=== PATIENT | male | born 1985 | race Caucasian/White ===

== ENCOUNTER 2018-02-19 11:54 | Emergency (ER) | payer SELFPAY ==
[2018-02-19] MEDS ORDERED: NS(*) 0.9% 1000 ML BAG 1,000 ML IV ONE (12:01)
[2018-02-19] MEDS ORDERED: NALOXONE HCL 0.4 MG/ML VIAL IVP ONE (12:05)
--- NOTE | 2018-02-19 12:21 | ER Report ---
History and Physical Time Seen By MD: 11:58 Hx. of Stated Complaint: pt nonresponsive. possible od HPI/ROS CHIEF COMPLAINT: Altered mental status HISTORY OF PRESENT ILLNESS: 32-year-old male patient presents to the emergency room with complaint of altered mental status. Due to his mental status he is not able to give a history. The person who dropped him off states that he had been called by an acquaintance concerned about possible drug overdose. States that he picked friend up and brought him to the emergency room. He was told that fentanyl may have been involved. REVIEW OF SYSTEMS: Unable to do review of systems as patient is unresponsive. Allergies: Coded Allergies: No Known Drug Allergies (Unverified , 02/19/18) Home Meds No Active Prescriptions or Reported Meds Past Medical/Surgical History Unable to obtain past medical history as patient is unresponsive Reviewed Nurses Notes: Yes Constitutional Vital Sign - Last 24 Hours 02/19/18 02/19/18 02/19/18 02/19/18 11:54 11:59 12:06 12:08 Pulse ??? 84 Resp 12 B/P (MAP) 138/94 (109) 128/92 (104) 128/92 Pulse Ox 96 O2 Delivery Room Air 02/19/18 02/19/18 02/19/18 02/19/18 12:09 12:15 12:24 12:30 Pulse 86 ??? Resp 21 13 B/P (MAP) 129/89 (102) 124/81 (95) Pulse Ox 96 95 02/19/18 02/19/18 02/19/18 02/19/18 12:39 12:45 12:54 13:06 Pulse 72 75 Resp 10 12 B/P (MAP) 118/85 (96) Pulse Ox 96 94 O2 Flow Rate 1.0 02/19/18 02/19/18 02/19/18 02/19/18 13:09 13:21 13:24 13:39 Pulse ??? 72 86 Resp 12 14 B/P (MAP) 118/79 (92) Pulse Ox 100 02/19/18 02/19/18 02/19/18 02/19/18 13:40 13:45 14:00 14:15 Pulse 70 103 86 Resp 10 15 9 B/P (MAP) 121/83 (96) 118/78 (91) 02/19/18 02/19/18 02/19/18 11/3/18 14:20 14:30 14:40 14:45 Pulse 86 79 Resp 14 12 B/P (MAP) 115/77 (90) 122/83 (96) Pulse Ox 99 94 02/19/18 02/19/18 02/19/18 02/19/18 15:00 15:15 15:20 15:30 Pulse 83 85 79 Resp 13 13 16 B/P (MAP) 119/79 (92) 120/83 (95) Pulse Ox 94 94 02/19/18 15:40 B/P (MAP) ???/??? (1665) Physical Exam General Appearance: The patient is alert, has no immediate need for airway protection and no current signs of toxicity. Eyes: Pupils equal and round no injection. Pupil reaction is sluggish Respiratory: Chest is non tender, lungs are clear to auscultation. Cardiac: regular rate and rhythm Gastrointestinal: Abdomen is soft and non tender, no masses, bowel sounds normal. Musculoskeletal: Neck: Neck is supple and non tender. Extremities have full range of motion and are non tender. Skin: No rashes or lesions. Extremities are cold. DIFFERENTIAL DIAGNOSIS: After history and physical exam differential diagnosis was considered for drug overdose, alcohol intoxication, stroke, seizure, intracranial hemorrhage. Medical Decision Making Data Points Result Diagram: 02/19/18 1223 02/19/18 1223 Laboratory Hematology Test 02/19/18 12:23 02/19/18 12:30 02/19/18 15:17 Red Blood Count 5.51 M/uL (4.00-5.60) Mean Corpuscular Volume 94.6 fL (80.0-96.0) Mean Corpuscular Hemoglobin 32.3 pg (26.0-33.0) Mean Corpuscular Hemoglobin Concent 34.2 g/dL (32.0-36.0) Red Cell Distribution Width 13.1 % (11.5-14.5) Mean Platelet Volume 7.0 fL (7.2-11.1) Neutrophils (%) (Auto) 83.7 % (39.4-72.5) Lymphocytes (%) (Auto) 11.2 % (17.6-49.6) Monocytes (%) (Auto) 3.6 % (4.1-12.4) Eosinophils (%) (Auto) 0.5 % (0.4-6.7) Basophils (%) (Auto) 1.0 % (0.3-1.4) Nucleated RBC Relative Count (auto) 0.0 /100WBC Neutrophils # (Auto) 6.0 K/uL (2.0-7.4) Lymphocytes # (Auto) 0.8 K/uL (1.3-3.6) Monocytes # (Auto) 0.3 K/uL (0.3-1.0) Eosinophils # (Auto) 0.0 K/uL (0.0-0.5) Basophils # (Auto) 0.1 K/uL (0.0-0.1) Nucleated RBC Absolute Count (auto) 0.00 K/uL Blood Gas Puncture Site Right radial Blood Gas Patient Temperature 96.8 DEGREES Arterial Blood pH 7.38 (7.35-7.45) Arterial Blood Partial Pressure CO2 35 mmHg (32-37) Arterial Blood Partial Pressure O2 65 mmHg (60-80) Arterial Blood HCO3 21 mmol/L (20-26) Arterial Blood Oxygen Saturation 93 % (92-100) Arterial Blood Base Excess -4.0 mmol/L Caesar Test Nt avail Carboxyhemoglobin 4.9 % (< 5.0) Oxygen Liters/Minute Room air Sodium Level 147 mmol/L (137-145) Potassium Level 4.4 mmol/L (3.5-5.0) Chloride Level 110 mmol/L (98-107) Carbon Dioxide Level 26 mmol/L (22-30) Blood Urea Nitrogen 6 mg/dl (9-21) Creatinine 0.90 mg/dl (0.66-1.25) Glomerular Filtration Rate Calc > 60.0 Random Glucose 103 mg/dl (75-110) Calcium Level 9.4 mg/dl (8.4-10.2) Total Bilirubin 0.6 mg/dl (0.2-1.3) Aspartate Amino Transf (AST/SGOT) 14 U/L (0-35) Alanine Aminotransferase (ALT/SGPT) 33 U/L (0-56) Alkaline Phosphatase 64 U/L (0-126) Ammonia < 9 UMOL/L (9-33) Troponin I < 0.012 ng/ml Total Protein 7.6 g/dl (6.3-8.2) Albumin 4.6 g/dl (3.5-5.0) Serum Alcohol 362 mg/dl Urine Color Colorless Urine Clarity Clear Urine pH 7.0 pH (4.8-9.5) Urine Specific [place] 1.002 Urine Protein Negative mg/dL (NEGATIVE) Urine Glucose (UA) Negative mg/dL (NEGATIVE) Urine Ketones Negative mg/dL (NEGATIVE) Urine Blood Negative (NEGATIVE) Urine Nitrite Negative (NEGATIVE) Urine Bilirubin Negative (NEGATIVE) Urine Urobilinogen Negative mg/dL (0.2-1.9) Urine Leukocyte Esterase Negative (NEGATIVE) Urine RBC None /HPF (0-2/HPF) Urine WBC None /HPF (0-5/HPF) Urine Squamous Epithelial Cells None /LPF (NONE-FEW) Urine Bacteria Negative /HPF (NONE-FEW) Urine Mucus None /HPF (NONE-FEW) Urine Opiates Screen Negative Urine Barbiturates Screen Negative Ur Tricyclic Antidepressants Screen Negative Urine Phencyclidine Screen Negative Urine Amphetamines Screen Negative Urine Benzodiazepines Screen Negative Urine Cocaine Screen Negative Urine Cannabinoids Screen Negative Lactate 2.5 mmol/L (0.7-2.1) Chemistry Test 02/19/18 12:23 02/19/18 12:30 02/19/18 15:17 White Blood Count 7.2 k/uL (4.5-11.0) Red Blood Count 5.51 M/uL (4.00-5.60) Hemoglobin 17.8 g/dL (14.0-18.0) Hematocrit 52.1 % (42.0-52.0) Mean Corpuscular Volume 94.6 fL (80.0-96.0) Mean Corpuscular Hemoglobin 32.3 pg (26.0-33.0) Mean Corpuscular Hemoglobin Concent 34.2 g/dL (32.0-36.0) Red Cell Distribution Width 13.1 % (11.5-14.5) Platelet Count 354 K/uL (150-450) Mean Platelet Volume 7.0 fL (7.2-11.1) Neutrophils (%) (Auto) 83.7 % (39.4-72.5) Lymphocytes (%) (Auto) 11.2 % (17.6-49.6) Monocytes (%) (Auto) 3.6 % (4.1-12.4) Eosinophils (%) (Auto) 0.5 % (0.4-6.7) Basophils (%) (Auto) 1.0 % (0.3-1.4) Nucleated RBC Relative Count (auto) 0.0 /100WBC Neutrophils # (Auto) 6.0 K/uL (2.0-7.4) Lymphocytes # (Auto) 0.8 K/uL (1.3-3.6) Monocytes # (Auto) 0.3 K/uL (0.3-1.0) Eosinophils # (Auto) 0.0 K/uL (0.0-0.5) Basophils # (Auto) 0.1 K/uL (0.0-0.1) Nucleated RBC Absolute Count (auto) 0.00 K/uL Blood Gas Puncture Site Right radial Blood Gas Patient Temperature 96.8 DEGREES Arterial Blood pH 7.38 (7.35-7.45) Arterial Blood Partial Pressure CO2 35 mmHg (32-37) Arterial Blood Partial Pressure O2 65 mmHg (60-80) Arterial Blood HCO3 21 mmol/L (20-26) Arterial Blood Oxygen Saturation 93 % (92-100) Arterial Blood Base Excess -4.0 mmol/L Caesar Test Nt avail Carboxyhemoglobin 4.9 % (< 5.0) Oxygen Liters/Minute Room air Glomerular Filtration Rate Calc > 60.0 Calcium Level 9.4 mg/dl (8.4-10.2) Total Bilirubin 0.6 mg/dl (0.2-1.3) Aspartate Amino Transf (AST/SGOT) 14 U/L (0-35) Alanine Aminotransferase (ALT/SGPT) 33 U/L (0-56) Alkaline Phosphatase 64 U/L (0-126) Ammonia < 9 UMOL/L (9-33) Troponin I < 0.012 ng/ml Total Protein 7.6 g/dl (6.3-8.2) Albumin 4.6 g/dl (3.5-5.0) Serum Alcohol 362 mg/dl Urine Color Colorless Urine Clarity Clear Urine pH 7.0 pH (4.8-9.5) Urine Specific [place] 1.002 Urine Protein Negative mg/dL (NEGATIVE) Urine Glucose (UA) Negative mg/dL (NEGATIVE) Urine Ketones Negative mg/dL (NEGATIVE) Urine Blood Negative (NEGATIVE) Urine Nitrite Negative (NEGATIVE) Urine Bilirubin Negative (NEGATIVE) Urine Urobilinogen Negative mg/dL (0.2-1.9) Urine Leukocyte Esterase Negative (NEGATIVE) Urine RBC None /HPF (0-2/HPF) Urine WBC None /HPF (0-5/HPF) Urine Squamous Epithelial Cells None /LPF (NONE-FEW) Urine Bacteria Negative /HPF (NONE-FEW) Urine Mucus None /HPF (NONE-FEW) Urine Opiates Screen Negative Urine Barbiturates Screen Negative Ur Tricyclic Antidepressants Screen Negative Urine Phencyclidine Screen Negative Urine Amphetamines Screen Negative Urine Benzodiazepines Screen Negative Urine Cocaine Screen Negative Urine Cannabinoids Screen Negative Lactate 2.5 mmol/L (0.7-2.1) Toxicology Test 02/19/18 12:23 02/19/18 12:30 Serum Alcohol 362 mg/dl Urine Opiates Screen Negative Urine Barbiturates Screen Negative Ur Tricyclic Antidepressants Screen Negative Urine Phencyclidine Screen Negative Urine Amphetamines Screen Negative Urine Benzodiazepines Screen Negative Urine Cocaine Screen Negative Urine Cannabinoids Screen Negative Urinalysis Test 02/19/18 12:30 Urine Color Colorless Urine Clarity Clear Urine pH 7.0 pH (4.8-9.5) Urine Specific [place] 1.002 Urine Protein Negative mg/dL (NEGATIVE) Urine Glucose (UA) Negative mg/dL (NEGATIVE) Urine Ketones Negative mg/dL (NEGATIVE) Urine Blood Negative (NEGATIVE) Urine Nitrite Negative (NEGATIVE) Urine Bilirubin Negative (NEGATIVE) Urine Urobilinogen Negative mg/dL (0.2-1.9) Urine Leukocyte Esterase Negative (NEGATIVE) Urine RBC None /HPF (0-2/HPF) Urine WBC None /HPF (0-5/HPF) Urine Squamous Epithelial Cells None /LPF (NONE-FEW) Urine Bacteria Negative /HPF (NONE-FEW) Urine Mucus None /HPF (NONE-FEW) EKG/Imaging EKG Interpretation 12 lead EKG: Rhythm: normal sinus rhythm [place]: Rightward axis QRS: normal ST segments: normal Imaging Technique: CHEST SINGLE AP HISTORY: altered mental status COMPARISON: None available Findings: The lungs are clear. A nodular opacity overlies the right lung base likely secondary to a nipple shadow. No pleural effusion or pneumothorax. The cardiomediastinal silhouette is normal. Impression: 1. No acute cardiopulmonary process. Report Dictated By: Omi Balderas DO at 02/19/2018 1:27 PM Report E-Signed By: Omi Balderas DO at 02/19/2018 1:[address] Head without contrast Indication: Altered mental status Comparison: None available Technique: Axial CT images were obtained through the brain from the skull base to the vertex without administration of IV contrast. Reformatted coronal and sagittal images were also obtained. One of the following dose optimization techniques was utilized in the performance of this exam: Automated exposure control; adjustment of the mA and/or kV according to the patient's size; or use of an iterative reconstruction technique. Specific details can be referenced in the facility's radiology CT exam operational policy. Findings: There is no acute hemorrhage, midline shift or mass effect. No ext ra-axial fluid collections. The richard-white matter differentiation is maintained. The ventricles and basal cisterns are normal in contour and appearance. Incidental note is made of a probable benign arachnoid cyst within the posterior fossa. The visualized paranasal sinuses and mastoid air cells are clear. IMPRESSION: 1. No acute intracranial process. 2. Incidental note of a benign arachnoid cyst within the posterior fossa. Report Dictated By: Omi Balderas DO at 02/19/2018 1:28 PM Report E-Signed By: Omi Balderas DO at 02/19/2018 1:42 PM ED Course/Re-evaluation ED Course Patient was admitted to an exam room, history and physical were obtained. D ifferential diagnoses were considered. On examination patient initially was altered, he was not responding to questions. He would tell us what his name was that was about it. An IV was started, patient started receiving fluids. With the person he dropped the patient off saying that there could be drugs And I did ask the patient if he taken drugs. He stated that he had not. At the time that I asked him a question he responded patient had answered what his name was "Harry" and "No" that he had not taken drugs. Patient was given 0.1 mg of Narcan. There is no improvement eat gave him another 0.1 of Narcan. That seemed to help perk him up a little bit. I did give him 0.2 mg after that which had no impact. A catheter was placed, urine sample Dr. Kvng lara. A CBC, CMP, lactate, carbon monoxide level, alcohol level, ABG were done. Patient had an elevated blood alcohol of 364. His drug screen was negative, urinalysis was unremarkable. A CT scan of the head, chest x-ray were done. The results were negative. When the patient returned from CT scan he was more interactive. He was able to tell me where he was. Patient's initial lactate was 2.7. We did continue to give him fluids. After his third liter of fluid we did get a repeat lactate which was 2.5. White count was normal, imaging the brain was normal, except for a benign cyst in the back of the brain, chest x-ray was negative. Patient's vital signs all look good. With the vital signs looking good and the absence of response of Narcan I do not believe that the patient had taken any opiates. He also had a negative drug screen which confirm that. I will the patient had become extremely intoxicated secondary to alcohol. After the patient being here 3 hours he was alert, he is oriented. Patient states that he does feel ready to go home. We will go ahead and discharge patient home at this time. He is follow- up with his primary care provider in the next week. He is return to emergency room if condition worsens. Patient verbalized understanding and agreement with plan. Decision to Disposition Date: Feb 19, 2018 Decision to Disposition Time: 15:55 Depart Departure Latest Vital Signs Vital Signs Date Time Temp Pulse Resp B/P (MAP) Pulse Ox O2 Delivery O2 Flow Rate FiO2 02/19/18 15:40 ???/??? (1665) 02/19/18 15:30 79 16 94 02/19/18 13:06 1.0 02/19/18 12:08 Room Air Impression: Primary Impression: Altered mental status Additional Impression: Alcohol intoxication Condition: Improved Disposition: HOME OR SELF-CARE New Scripts No Active Prescriptions or Reported Meds Patient Instructions: Alcohol Intoxication (ED) Additional Instructions: Increase fluid intake. Limit alcohol consumption. Return to the ER if condition worsens. Follow up with your primary care provider in the next week. Diet and activity as tolerated. Problem Qualifiers Primary Impression: Altered mental status Altered mental status type: transient alteration of awareness Qualified Codes: R40.4 - Transient alteration of awareness Additional Impression: Alcohol intoxication Complication of substance-induced condition: uncomplicated Qualified Codes: F10.920 - Alcohol use, unspecified with intoxication, uncomplicated MICHAEL MOORE Feb 19, 2018 12:21
[2018-02-19 12:33] LABS: PLATELET COUNT, AUTOMATED 354 K/uL (150-450)
--- NOTE | 2018-02-19 13:31 | RADIOLOGY IMAGING REPORT ---
FACILITY: [facility] - [place] PATIENT NAME: Harry Steen : 1985 MR: [id number] V: [id number] EXAM DATE: ORDERING PHYSICIAN: MICHAEL MOORE TECHNOLOGIST: Location: [facility] [place] Patient: Harry Steen : 1985 Visit/Account:[id number] Date of Sevice: 02/19/2018 Technique: CHEST SINGLE AP HISTORY: altered mental status COMPARISON: None available Findings: The lungs are clear. A nodular opacity overlies the right lung base likely secondary to a nipple shadow. No pleural effusion or pneumothorax. The cardiomediastinal silhouette is normal. Impression: 1. No acute cardiopulmonary process. Report Dictated By: Omi Balderas DO at 02/19/2018 1:27 PM Report E-Signed By: Omi Balderas DO at 02/19/2018 1:28 PM WSN:[id number]
--- NOTE | 2018-02-19 13:46 | RADIOLOGY IMAGING REPORT ---
FACILITY: [facility] - [place], [place] PATIENT NAME: Harry Steen : 1985 MR: [id number] V: [id number] EXAM DATE: ORDERING PHYSICIAN: MICHAEL MOORE TECHNOLOGIST: Location: [facility] - [place] Patient: Harry Steen : 1985 Visit/Account:[id number] Date of Sevice: 02/19/2018 CT Head without contrast Indication: Altered mental status Comparison: None available Technique: Axial CT images were obtained through the brain from the skull base to the vertex without administration of IV contrast. Reformatted coronal and sagittal images were also obtained. One of the following dose optimization techniques was utilized in the performance of this exam: Autom ated exposure control; adjustment of the mA and/or kV according to the patient's size; or use of an i terative reconstruction technique. Specific details can be referenced in the facility's radiology C T exam operational policy. Findings: There is no acute hemorrhage, midline shift or mass effect. No extra-axial fluid collecti ons. The richard-white matter differentiation is maintained. The ventricles and basal cisterns are nor mal in contour and appearance. Incidental note is made of a probable benign arachnoid cyst within the posterior fossa. The visualized paranasal sinuses and mastoid air cells are clear. IMPRESSION: 1. No acute intracranial process. 2. Incidental note of a benign arachnoid cyst within the posterior fossa. Report Dictated By: Omi Balderas DO at 02/19/2018 1:28 PM Report E-Signed By: Omi Balderas DO at 02/19/2018 1:42 PM WSN:[id number]
--- NOTE | 2018-02-19 14:00 | EKG ---
FACILITY: [facility] PATIENT NAME: MAGDALENO BALLESTEROS : [id number] MR: [id number] V: [id number] EXAM DATE: ORDERING PHYSICIAN: MICHAEL MOORE TECHNOLOGIST: Test Reason : altered mental status, possible OD Blood Pressure : / mmHG Vent. Rate : 087 BPM Atrial Rate : 087 BPM P-R Int : 136 ms QRS Dur : 092 ms QT Int : 388 ms P-R-T Axes : 080 092 066 degrees QTc Int : 466 ms Sinu srhythm Rightward axis Nonspecific ST findings Borderline ECG No previous ECGs available Confirmed by JIL VILLELA ([id number] on 02/19/2018 9:09:35 PM Referred By: Confirmed By:JIL VILLELA
== END 2018-02-19 16:20 | disposition home or self-care (01) ==
LOC: ER 12:09
DX: R41.82 Altered mental status, unspecified (principal); F10.920 Alcohol use, unspecified with intoxication, uncomplicated; Y90.8 Blood alcohol level of 240 mg/100 ml or more
CPT/HCPCS: 36415; 70450; 71045; 80305; 80320; 81001; 82140; 82375; 82803; 83605; 84484; 85025; 93005; 96361; 96374; 99284; C1758; J2310; J7030; 36416; 82040; 82247; 82310; 82374; 82435; 82565; 82947; 82948; 84075; 84132; 84155; 84295; 84450; 84460; 84520